=== PATIENT | male | born 1985 | race Caucasian/White ===

== ENCOUNTER 2020-01-02 11:12 | Emergency (ER) | payer SELFPAY ==
[2020-01-02 11:22] VITALS: BP 148/101; PULSE 50; RESP 20; O2SAT 100
--- NOTE | 2020-01-02 11:40 | PC.NURSE ---
Pt seen leaving ED waiting room to the parking lot.
== END 2020-01-02 11:40 | disposition left against medical advice (07) ==
LOC: ANHED 12:28
DX: Z53.21 Procedure and treatment not carried out due to patient leaving prior to being seen by health care provider (principal)
CPT/HCPCS: 99199